=== PATIENT | male | born 1950 | race Caucasian/White ===

== ENCOUNTER 2023-05-12 14:44 | Observation (INO) ==
[2023-05-12] MEDS: cefTAZidime (*) 2 GM in NS 0.9% 100 ml BAG 100 ML IVPB ONE (15:55)
[2023-05-12 16:12] LABS: ABS Neutrophils 0.5 10^3/uL (1.5-7.6); Hematocrit 30.1 % (38-53); Hemoglobin 11.1 g/dL (13.2-16.3); Mean Corpuscular Hgb Conc 36.8 g/dL (31-36); Mean Corpuscular Volume 100.5 fL (80-97); Mean Platelet Volume 7.3 fL (7.5-11.2); Platelet Count 61 10^3/uL (150-450); Red Cell Distribution Width 17.3 % (12-17)
[2023-05-12 16:27] LABS: ALT 15 U/L (7-52); AST 18 U/L (13-39); Albumin 4.5 g/dL (3.2-5.2); Albumin/Globulin Ratio 1.7 (1-3); Alkaline Phosphatase 55 U/L (35-149); Anion Gap 6 mmol/L (2-16); Blood Urea Nitrogen 18 mg/dL (6-24); CO2 Carbon Dioxide 27 mmol/L (22-32); Calcium 9.1 mg/dL (8.6-10.3); Chloride 104 mmol/L (101-111); Creatinine, Serum 0.91 mg/dL (0.67-1.17); Globulin 2.6 g/dL (2-4); Glucose 92 mg/dL (70-100); Magnesium 2.1 mg/dL (1.9-2.7); Potassium 4.2 mmol/L (3.5-5.0); Sodium 137 mmol/L (135-145); Total Bilirubin 0.8 mg/dL (0.2-1.0); Total Protein 7.1 g/dL (6.4-8.9); eGFR CKD-EPI 89.5 (>60)
[2023-05-12 16:39] LABS: ABS Lymphocytes 0.5 10^3/uL (1.0-4.8); ABS Monocytes 0.1 10^3/uL (0.0-1.1); Eosinophil % 1.2 %; Lymphocyte % 47.8 %
[2023-05-12 17:32] LABS: C Reactive Protein 6.09 mg/L (<8.01)
[2023-05-12] MEDS: NS 0.9% 1000 ml BAG 1,000 ML IV SCH (17:33)
[2023-05-12] MEDS: Cefepime 2 GM in Dextrose 2 GM/50 ML BAG IV SCH (17:34)
[2023-05-12 17:56] LABS: Urine Appearance Clear; Urine Bilirubin Negative (Negative); Urine Blood Negative (Negative); Urine Color Yellow; Urine Glucose Negative (Negative); Urine Ketones 1+ (Negative); Urine Nitrite Negative (Negative); Urine Protein Negative (Negative); Urine Urobilinogen Negative (Negative)
[2023-05-12 17:57] LABS: Urine Bacteria Absent /HPF (Absent); Urine Red Blood Cell Trace(0-2/hpf) /HPF (0-Trace); Urine White Blood Cell Trace(0-5/hpf) /HPF (0-Trace)
[2023-05-12 17:58] LABS: Folate > 20.00 ng/mL (5.90-24.80)
[2023-05-12 17:59] LABS: Vitamin B12 384 pg/mL (180-914)
[2023-05-12 19:51] LABS: Hepatitis B Surface Antigen Nonreactive (Nonreactive)
[2023-05-12] MEDS: Enoxaparin 40 MG/0.4 ML SYR SUBCUT SCH (19:57)
[2023-05-12 20:08] LABS: Hepatitis B Surface Ab Not Immune (Immune); Hepatitis C Antibody Negative (Negative)
[2023-05-13 05:44] LABS: ABS Lymphocytes 0.7 10^3/uL (1.0-4.8); ABS Monocytes 0.1 10^3/uL (0.0-1.1); ABS Neutrophils 0.3 10^3/uL (1.5-7.6); Eosinophil % 1.5 %; Hematocrit 26.2 % (38-53); Hemoglobin 9.5 g/dL (13.2-16.3); Lymphocyte % 62.8 %; Mean Corpuscular Hemoglobin 36.6 pg (27-33); Mean Corpuscular Hgb Conc 36.5 g/dL (31-36); Mean Corpuscular Volume 100.4 fL (80-97); Mean Platelet Volume 7.3 fL (7.5-11.2); Nucleated Red Blood Cells % 0.4 %/100WBC (0.0-0.8); Platelet Count 52 10^3/uL (150-450); Red Blood Count 2.61 10^6/uL (4.06-5.63); Red Cell Distribution Width 16.8 % (12-17); White Blood Count 1.2 10^3/uL (3.6-10.2)
[2023-05-13 06:02] LABS: Calcium 8.2 mg/dL (8.6-10.3); Creatinine, Serum 0.81 mg/dL (0.67-1.17); Phosphorus 3.2 mg/dL (2.5-5.0); Potassium 3.8 mmol/L (3.5-5.0); eGFR CKD-EPI 93.7 (>60)
[2023-05-14 07:01] LABS: Calcium 8.6 mg/dL (8.6-10.3); Creatinine, Serum 0.85 mg/dL (0.67-1.17); Potassium 4.4 mmol/L (3.5-5.0); eGFR CKD-EPI 92.3 (>60)
[2023-05-14 07:18] LABS: Hematocrit 27.2 % (38-53); Hemoglobin 10.1 g/dL (13.2-16.3); Mean Corpuscular Hemoglobin 37.3 pg (27-33); Mean Corpuscular Hgb Conc 36.9 g/dL (31-36); Mean Platelet Volume 7.1 fL (7.5-11.2); Platelet Count 52 10^3/uL (150-450); Red Cell Distribution Width 16.7 % (12-17)
[2023-05-14 07:21] LABS: ABS Neutrophils 0.4 10^3/uL (1.5-7.6)
[2023-05-14 07:42] LABS: ABS Lymphocytes 0.6 10^3/uL (1.0-4.8); ABS Monocytes 0.1 10^3/uL (0.0-1.1); ABS Nucleated RBC 0.01 10^3/ul; Eosinophil % 2.3 %; Lymphocyte % 56.3 %; Nucleated Red Blood Cells % 0.5 %/100WBC (0.0-0.8)
[2023-05-14 10:27] VITALS: BP 143/69
[2023-05-14 11:03] LABS: Body Fluid Appearance Bloody; Body Fluid Color Red; Body Fluid Source Synovial Fluid
[2023-05-14 11:52] LABS: Body Fluid Total Nucleated 69 /mcL
[2023-05-14 12:19] LABS: Body Fluid Mono 23 %; Body Fluid Total Cells Counted 91
== END 2023-05-14 12:43 | disposition home or self-care (01) ==
LOC: EDHOLD 14:44 → ED 14:44 → SUATTDRO 15:54 → SSU 16:53
PROVIDERS: ADMIT Hospitalist; ATTEND Internal Medicine

== ENCOUNTER 2023-05-24 08:24 | Inpatient (IN) ==
[~2023-05-24 08:24] MED LIST: AZACITIDINE SUBCUT SCH; Cefepime 2 GM in NS 0.9% 50 ML BAG IVPB SCH
[2023-05-24 09:07] LABS: Hemoglobin 9.4 g/dL (13.2-16.3); Mean Corpuscular Hemoglobin 37.6 pg (27-33); Mean Corpuscular Hgb Conc 36.3 g/dL (31-36); Mean Corpuscular Volume 103.6 fL (80-97); Mean Platelet Volume 6.1 fL (7.5-11.2); Platelet Count 55 10^3/uL (150-450); Red Blood Count 2.51 10^6/uL (4.06-5.63); Red Cell Distribution Width 16.5 % (12-17); White Blood Count 0.7 10^3/uL (3.6-10.2)
[2023-05-24 09:08] LABS: ABS Neutrophils 0.3 10^3/uL (1.5-7.6)
[2023-05-24 09:26] LABS: Albumin 4.1 g/dL (3.2-5.2); Albumin/Globulin Ratio 1.4 (1-3); Calcium 9.4 mg/dL (8.6-10.3); Creatinine, Serum 1.05 mg/dL (0.67-1.17); Globulin 2.9 g/dL (2-4); Phosphorus 2.4 mg/dL (2.5-5.0); Total Bilirubin 0.6 mg/dL (0.2-1.0); Uric Acid 3.5 mg/dL (4.4-7.6); eGFR CKD-EPI 75.4 (>60)
[2023-05-24 09:34] LABS: ABS Lymphocytes 0.4 10^3/uL (1.0-4.8); Eosinophil % 1.4 %; Lymphocyte % 50.9 %; Nucleated Red Blood Cells % 0.1 %/100WBC (0.0-0.8)
[2023-05-24] MEDS: Cefepime 2 GM in Dextrose 2 GM/50 ML BAG IV SCH ×2 (10:12→17:43)
[2023-05-24 11:21] LABS: Urine Appearance Clear; Urine Bilirubin Negative (Negative); Urine Blood Negative (Negative); Urine Color Light-Yellow; Urine Glucose Negative (Negative); Urine Ketones Negative (Negative); Urine Nitrite Negative (Negative); Urine Protein Negative (Negative); Urine Specific Gravity 1.011 (1.002-1.030); Urine Urobilinogen Negative (Negative)
[2023-05-24] MEDS: NS 0.9% 1000 ml BAG 1,000 ML IV SCH (15:21)
[2023-05-24] MEDS ORDERED: Polyethylene Glycol 3350 17 GM PACKET PO PRN (15:54)
[2023-05-24] MEDS ORDERED: Senna TAB 8.6 mg TAB PO PRN (15:54)
[2023-05-24] MEDS: Enoxaparin 100 MG/ML SYR SUBCUT SCH (17:42)
[2023-05-24] MEDS: Magnesium Hydroxide LIQ 30 ML UDC PO SCH (21:26)
[2023-05-25 07:00] LABS: Albumin 3.4 g/dL (3.2-5.2); Albumin/Globulin Ratio 1.6 (1-3); Calcium 8.1 mg/dL (8.6-10.3); Creatinine, Serum 0.9 mg/dL (0.67-1.17); Globulin 2.1 g/dL (2-4); Potassium 4.1 mmol/L (3.5-5.0); Total Bilirubin 0.4 mg/dL (0.2-1.0); Total Protein 5.5 g/dL (6.4-8.9); eGFR CKD-EPI 90.7 (>60)
[2023-05-25 09:03] LABS: ABS Lymphocytes 0.6 10^3/uL (1.0-4.8); ABS Neutrophils 0.2 10^3/uL (1.5-7.6); Eosinophil % 1.2 %; Hemoglobin 7.3 g/dL (13.2-16.3); Lymphocyte % 70.5 %; Mean Corpuscular Hemoglobin 37.2 pg (27-33); Mean Corpuscular Hgb Conc 36.3 g/dL (31-36); Mean Corpuscular Volume 102.5 fL (80-97); Mean Platelet Volume 6.6 fL (7.5-11.2); Nucleated Red Blood Cells % 0.4 %/100WBC (0.0-0.8); Platelet Count 45 10^3/uL (150-450); Red Blood Count 1.95 10^6/uL (4.06-5.63); Red Cell Distribution Width 16.5 % (12-17); White Blood Count 0.8 10^3/uL (3.6-10.2)
[2023-05-25] MEDS: POSACONAZOLE 100 MG PO SCH (11:06)
[2023-05-25] MEDS: Cefepime 2 GM in Dextrose 2 GM/50 ML BAG IV SCH (12:19)
[2023-05-25] MEDS: Magnesium Hydroxide LIQ 30 ML UDC PO PRN (18:12)
[2023-05-25] MEDS: Enoxaparin 100 MG/ML SYR SUBCUT SCH (21:56)
[2023-05-26 06:59] LABS: Albumin 3.7 g/dL (3.2-5.2); Albumin/Globulin Ratio 1.6 (1-3); Calcium 8.4 mg/dL (8.6-10.3); Creatinine, Serum 0.84 mg/dL (0.67-1.17); Globulin 2.3 g/dL (2-4); Total Bilirubin 0.6 mg/dL (0.2-1.0); eGFR CKD-EPI 92.7 (>60)
[2023-05-26 07:24] LABS: Hematocrit 20.6 % (38-53); Hemoglobin 7.5 g/dL (13.2-16.3); Mean Corpuscular Hemoglobin 37.5 pg (27-33); Mean Corpuscular Hgb Conc 36.5 g/dL (31-36); Mean Corpuscular Volume 102.7 fL (80-97); Red Blood Count 2.01 10^6/uL (4.06-5.63); Red Cell Distribution Width 16.3 % (12-17); White Blood Count 0.7 10^3/uL (3.6-10.2)
[2023-05-26 08:21] LABS: ABS Lymphocytes 0.5 10^3/uL (1.0-4.8); ABS Neutrophils 0.2 10^3/uL (1.5-7.6); Eosinophil % 1.6 %; Lymphocyte % 68.1 %; Mean Platelet Volume 6.4 fL (7.5-11.2); Nucleated Red Blood Cells % 0.4 %/100WBC (0.0-0.8); Platelet Count 46 10^3/uL (150-450)
[2023-05-26 10:42] VITALS: BP 120/74
== END 2023-05-26 11:55 | disposition home or self-care (01) | DRG 640 ==
LOC: CHOA 08:24 → SSU 14:28
PROVIDERS: ADMIT Internal Medicine Hematology & Oncology; ATTEND Internal Medicine

== ENCOUNTER 2023-06-29 14:35 | Inpatient (IN) ==
[2023-06-29] MEDS ORDERED: Cefepime 2 GM in Dextrose 2 GM/50 ML BAG IV SCH (15:00)
[2023-06-29] MEDS ORDERED: Enoxaparin 40 MG/0.4 ML SYR SUBCUT SCH (15:00)
[2023-06-29] MEDS ORDERED: Ondansetron ODT 4 mg TAB 4 MG TAB PO PRN (15:19)
[2023-06-29] MEDS: Cefepime 2 GM in Dextrose 2 GM/50 ML BAG IV SCH (16:09)
[2023-06-29] MEDS: NS 0.9% 1000 ml BAG 400 ML IV ONE (16:09)
[2023-06-29] MEDS: NS 0.9% 1000 ml BAG 1,000 ML IV SCH (16:51)
[2023-06-29 16:52] LABS: Hematocrit 19.1 % (38-53); Hemoglobin 6.7 g/dL (13.2-16.3); Mean Corpuscular Hemoglobin 34.3 pg (27-33); Mean Corpuscular Hgb Conc 34.9 g/dL (31-36); Mean Corpuscular Volume 98.3 fL (80-97); Mean Platelet Volume 6.6 fL (7.5-11.2); Platelet Count 79 10^3/uL (150-450); Red Blood Count 1.95 10^6/uL (4.06-5.63); Red Cell Distribution Width 21.6 % (12-17); White Blood Count 0.2 10^3/uL (3.6-10.2)
[2023-06-29 17:22] LABS: Albumin 3.9 g/dL (3.2-5.2); Albumin/Globulin Ratio 1.8 (1-3); Calcium 8.3 mg/dL (8.6-10.3); Globulin 2.2 g/dL (2-4); Potassium 4.3 mmol/L (3.5-5.0); Total Bilirubin 1.3 mg/dL (0.2-1.0); Total Protein 6.1 g/dL (6.4-8.9)
[2023-06-29] MEDS: Enoxaparin 40 MG/0.4 ML SYR SUBCUT SCH (17:25)
[2023-06-29 17:58] LABS: ABS Lymphocytes 0.1 10^3/uL (1.0-4.8)
[2023-06-29 18:02] LABS: Creatinine, Serum 1.02 mg/dL (0.67-1.17); eGFR CKD-EPI 77.6 (>60)
[2023-06-29 19:08] LABS: Urine Appearance Clear; Urine Bilirubin Negative (Negative); Urine Blood Negative (Negative); Urine Color Yellow; Urine Glucose Negative (Negative); Urine Ketones Negative (Negative); Urine Nitrite Negative (Negative); Urine Protein 1+ (>=30 mg/dL) (Negative); Urine Specific Gravity 1.021 (1.002-1.030); Urine Urobilinogen Negative (Negative)
[2023-06-29 19:09] LABS: Urine Bacteria Absent /HPF (Absent); Urine Red Blood Cell 1+(3-5/hpf) /HPF (0-Trace); Urine White Blood Cell Trace(0-5/hpf) /HPF (0-Trace)
[2023-06-29] MEDS: Morphine 2 MG/ML SYRINGE IV ONE (20:23)
[2023-06-29] MEDS: Senna TAB 8.6 mg TAB PO PRN (22:55)
[2023-06-30 08:34] LABS: Hematocrit 18.5 % (38-53); Hemoglobin 6.5 g/dL (13.2-16.3); Mean Corpuscular Hemoglobin 34.7 pg (27-33); Mean Corpuscular Hgb Conc 35.2 g/dL (31-36); Mean Corpuscular Volume 98.4 fL (80-97); Mean Platelet Volume 6.7 fL (7.5-11.2); Platelet Count 84 10^3/uL (150-450); Red Blood Count 1.88 10^6/uL (4.06-5.63); White Blood Count 0.2 10^3/uL (3.6-10.2)
[2023-06-30 09:47] LABS: Albumin 3.4 g/dL (3.2-5.2); Albumin/Globulin Ratio 1.5 (1-3); Creatinine, Serum 0.99 mg/dL (0.67-1.17); Globulin 2.2 g/dL (2-4); Total Bilirubin 0.9 mg/dL (0.2-1.0); Total Protein 5.6 g/dL (6.4-8.9); eGFR CKD-EPI 80.4 (>60)
[2023-06-30] MEDS: POSACONAZOLE 100 MG PO SCH (11:34)
[2023-06-30 11:54] LABS: ABS Lymphocytes 0.2 10^3/uL (1.0-4.8); ABS Nucleated RBC 0.01 10^3/ul; Lymphocyte % 87.6 %; Nucleated Red Blood Cells % 4.2 %/100WBC (0.0-0.8)
[2023-06-30] MEDS: NS 0.9% 1000 ml BAG 1,000 ML IV SCH (15:38)
[2023-07-01 06:31] LABS: Albumin/Globulin Ratio 1.5 (1-3); Calcium 7.8 mg/dL (8.6-10.3); Creatinine, Serum 0.77 mg/dL (0.67-1.17); Potassium 3.9 mmol/L (3.5-5.0); Total Bilirubin 0.8 mg/dL (0.2-1.0); eGFR CKD-EPI 94.5 (>60)
[2023-07-01 06:39] LABS: Hematocrit 18.6 % (38-53); Hemoglobin 6.7 g/dL (13.2-16.3); Mean Corpuscular Hemoglobin 34.3 pg (27-33); Mean Corpuscular Volume 95.4 fL (80-97); Mean Platelet Volume 6.8 fL (7.5-11.2); Platelet Count 93 10^3/uL (150-450); Red Blood Count 1.95 10^6/uL (4.06-5.63); Red Cell Distribution Width 19.3 % (12-17); White Blood Count 0.3 10^3/uL (3.6-10.2)
[2023-07-01 07:57] LABS: ABS Lymphocytes 0.3 10^3/uL (1.0-4.8); Eosinophil % 0.2 %; Lymphocyte % 91.6 %; Nucleated Red Blood Cells % 1.6 %/100WBC (0.0-0.8)
[2023-07-01 16:15] LABS: ABS Lymphocytes 0.2 10^3/uL (1.0-4.8); Eosinophil % 0.2 %; Hematocrit 21.1 % (38-53); Hemoglobin 7.5 g/dL (13.2-16.3); Lymphocyte % 87.1 %; Mean Corpuscular Hemoglobin 34.3 pg (27-33); Mean Corpuscular Hgb Conc 35.7 g/dL (31-36); Mean Corpuscular Volume 96.1 fL (80-97); Nucleated Red Blood Cells % 0.9 %/100WBC (0.0-0.8); Platelet Count 130 10^3/uL (150-450); Red Cell Distribution Width 20.7 % (12-17); White Blood Count 0.2 10^3/uL (3.6-10.2)
[2023-07-01] MEDS: Magnesium Hydroxide LIQ 30 ML UDC PO ONE (17:04)
[2023-07-01] MEDS: Senna TAB 8.6 mg TAB PO SCH (20:45)
[2023-07-02 07:17] LABS: Hematocrit 19.1 % (38-53); Hemoglobin 6.8 g/dL (13.2-16.3); Mean Corpuscular Hgb Conc 35.7 g/dL (31-36); Mean Corpuscular Volume 95.3 fL (80-97); Mean Platelet Volume 6.7 fL (7.5-11.2); Platelet Count 133 10^3/uL (150-450); Red Cell Distribution Width 19.8 % (12-17); White Blood Count 0.4 10^3/uL (3.6-10.2)
[2023-07-02 08:28] LABS: ABS Lymphocytes 0.4 10^3/uL (1.0-4.8); Eosinophil % 0.4 %; Lymphocyte % 96.1 %; Nucleated Red Blood Cells % 0.2 %/100WBC (0.0-0.8)
[2023-07-02] MEDS: NS 0.9% 1000 ml BAG 1,000 ML IV SCH (10:23)
[2023-07-03 05:49] LABS: INR 1.1 (0.83-1.13)
[2023-07-03 07:26] LABS: Hemoglobin 7.6 g/dL (13.2-16.3); Mean Corpuscular Hemoglobin 33.3 pg (27-33); Mean Corpuscular Hgb Conc 36.1 g/dL (31-36); Mean Corpuscular Volume 92.4 fL (80-97); Mean Platelet Volume 6.8 fL (7.5-11.2); Platelet Count 181 10^3/uL (150-450); Red Blood Count 2.28 10^6/uL (4.06-5.63); Red Cell Distribution Width 21.8 % (12-17); White Blood Count 0.5 10^3/uL (3.6-10.2)
[2023-07-03 07:33] LABS: ABS Lymphocytes 0.5 10^3/uL (1.0-4.8); Anisocytosis 2+; Eosinophil % 0.1 %; Lymphocyte % 96.2 %; Nucleated Red Blood Cells % 0.9 %/100WBC (0.0-0.8)
[2023-07-03] MEDS ORDERED: Naloxone 0.4 mg VIAL 0.4 mg/ml 1 ml VIAL IV PUSH PRN (09:32)
[2023-07-03] MEDS ORDERED: Flumazenil 0.5 mg/5 ml 0.1 MG/ML 5 ml VIAL IV PRN (09:32)
[2023-07-03] MEDS: Lidocaine 2% PF 5 ML VIAL INJ ONE (11:36)
[2023-07-03] MEDS: fentaNYL 100 mcg/2 ml 50 MCG/ML VIAL ONE (13:05)
[2023-07-03] MEDS: fentaNYL 100 mcg/2 ml 50 MCG/ML VIAL IV SLOW PU ONE (13:06)
[2023-07-03] MEDS: Midazolam 2 mg/2 ml VIAL 1 mg/ml 2 ml VIAL (2 mg) ONE (13:06)
[2023-07-03] MEDS: Midazolam 10 mg/10 ml VIAL 1 mg/ml 10 ml VIAL (10 mg) IV SLOW PU ONE (13:07)
[2023-07-03 13:51] VITALS: BP 140/78
[2023-07-05 08:48] LABS: AMLAF Result Summary Abnormal
[2023-07-11 10:53] LABS: BM Result Summary Abnormal
== END 2023-07-03 15:55 | disposition home or self-care (01) | DRG 809 ==
LOC: CHOA 14:35 → MED 14:36 → CHOA 14:53 → EDSTATUS 15:00
PROVIDERS: ADMIT Internal Medicine Hematology & Oncology; ATTEND Internal Medicine